=== PATIENT | female | born 1990 | race Caucasian/White ===

== ENCOUNTER 2016-06-02 14:00 | Inpatient (IN) | payer MEDICAID ==
[~2016-06-02] VITALS: Ht 165.1 cm; Wt 111.8 kg
[2016-06-02 14:14] VITALS: Ht 165.1 cm; Wt 111.8 kg
[2016-06-02] MEDS ORDERED: OXYTOCIN 30 UNITS/LR 500 ML IV PRN (14:30)
[2016-06-02] MEDS ORDERED: IBUPROFEN 600 MG TAB PO PRN (14:30)
[2016-06-02] MEDS ORDERED: MISOPROSTOL 200 MCG TAB PR PRN (14:30)
[2016-06-02] MEDS ORDERED: ACETAMINOPHEN/CODEINE #3 TAB PO PRN (14:30)
[2016-06-02] MEDS ORDERED: METHYLERGONOVINE 0.2 MG INJ IM PRN (14:30)
[2016-06-02] MEDS ORDERED: LIDOCAINE 1% (MPF) 30 ML INJ INJ PRN (14:30)
[2016-06-02] MEDS ORDERED: CARBOPROST 250 MCG INJ IM PRN (14:30)
[2016-06-02] MEDS ORDERED: OXYTOCIN 30 UNITS/LR 500 ML IV SCH ×2 (14:30)
[2016-06-02] MEDS: LACTATED RINGER'S 1,000 ML IV SCH ×2 (15:09→22:31)
[2016-06-02] MEDS ORDERED: DINOPROSTONE 10 MG VAG SUPP VAG ONE (15:30)
--- NOTE | 2016-06-02 15:44 | RADRPT ---
PROCEDURE: US OB. CLINICAL INDICATION: Macrosomia TECHNIQUE: Multiple sonographic images of the pelvis were obtained. Transabdominal imaging only w as performed. The images were reviewed on a PACS workstation. COMPARISON: No prior studies are available for comparison. FINDINGS: Single intrauterine gestation. Cephalic presentation. heart rate is 150 bpm. Measurements were made in order to determine age. The results are as follows: BPD = 9.90 cm HC = 34.54 cm AC = 37.69 cm FL = 8.05 cm Gestational age is 40 weeks 6 days by ultrasound criteria. Gestational age is 39 weeks 1 day and EDDA is 06/08/2016 by LMP. EFW = 4324 g +/- 649 g (greater than 97 %). The placenta is posterior fundal. There is no evidence for an abruption or placenta previa. IMPRESSION: 1. Single live intrauterine gestation of approximately 40 weeks 6 days by ultrasound criteria. RPTAT: EE .Norman Jung MD, MD Date Time Electronically viewed and signed by .Norman Jung MD, on 06/02/2016 15:44 .R/
[2016-06-02 15:48] LABS: BASOPHILS % 0.5 % (0.0-2.0); EOSINOPHILS % 0.6 % (0.0-7.0); HEMATOCRIT 34.6 % (37.0-47.0); HEMOGLOBIN 11.6 g/dl (12.0-16.0); LYMPHOCYTES # 1.8 10^3/ul (0.8-2.9); LYMPHOCYTES % 21.2 % (15.0-51.0); MEAN CORPUSCULAR HEMOGLOBIN 27.7 pg (29.0-33.0); MEAN CORPUSCULAR HGB CONC 33.4 g/dl (32.0-37.0); MEAN CORPUSCULAR VOLUME 82.9 fl (82.0-101.0); MEAN PLATELET VOLUME 8.9 fl (7.4-10.4); MONOCYTE # 0.6 10^3/ul (0.3-0.9); MONOCYTES % 7.1 % (0.0-11.0); NEUTROPHIL # 6.1 10^3/ul (1.6-7.5); NEUTROPHILS % 70.6 % (39.0-77.0); PLATELET COUNT 309 10^3/UL (140-440); RED BLOOD COUNT 4.17 10^6/ul (4.20-5.40); RED CELL DISTRIBUTION WIDTH 14.3 % (11.5-14.5); UNCORRECTED WBC 8.7 10^3/ul (4.8-10.8); WHITE BLOOD COUNT 8.7 10^3/ul (4.8-10.8)
[2016-06-02 15:56] VITALS: BP 115/67; PULSE 101; RESP 20
[2016-06-02 16:00] LABS: CONDITION 1; INR 0.95; PARTIAL THROMBOPLASTIN TIME 27.5 Sec (25.0-35.0); PROTIME 12.7 Sec (12.2-14.2)
[2016-06-02] MEDS ORDERED: LACTATED RINGER'S 1,000 ML IV PRN (16:00)
[2016-06-02 16:02] LABS: ALBUMIN 3.2 g/dl (3.3-4.9)
[2016-06-02 16:03] LABS: POTASSIUM 4.6 mmol/L (3.5-5.1)
[2016-06-02 16:05] LABS: ALBUMIN/GLOBULIN RATIO 0.88; BILIRUBIN,INDIRECT 0.4 mg/dl (0-1.1); BILIRUBIN,TOTAL 0.4 mg/dl (0.2-1.3); CREATININE 0.47 mg/dl (0.44-1.00); TOTAL PROTEIN 6.8 g/dl (6.1-8.1)
[2016-06-02 16:06] LABS: CALCIUM 8.5 mg/dl (8.4-10.2); URIC ACID 3.2 mg/dl (3.1-7.9)
--- NOTE | 2016-06-02 18:36 | HP ---
Date/Time of Note Date/Time of Note DATE: 06/02/16 TIME: 18:30 OB - History Hx of Present Free Text/Dictation admitted for elective induction of the labor Last Menstrual Period: September 02, 2015 Estimated Due Date: Jun 08, 2016 : 2 Para: 1 Care: Good Care Ultrasounds: Normal mid trimester US Obstetrical Complications: None Medical Complications: None Past Family/Social History * Past Medical, Surgical, Family and Obstetric Histories reviewed from chart. Blood Type: O+ Rubella: immune RPR/VDRL: Negative GBS Status: Negative HBsAG: Negative OB Admission Exam Vital Signs Vital Signs Vital Signs Date Time Temp Pulse Resp B/P Pulse Ox O2 Delivery O2 Flow Rate FiO2 06/02/16 15:56 97.7 101 20 115/67 Room Air Physical Exam HEENT: WNL Heart: Rhythm Normal Lungs: Clear, Equal Abdomen: WNL Extremities: Normal Reflexes: Normal Cervical Dilatation: 1cm Effacement: 0% Station: -3 Membranes: Intact Heart Rate: 130's Accelerations: Accelerations Present Decelerations: No Decelerations Varibility: Moderate Contractions on Admission: >10 Minutes Apart Last 72 hours Lab Results CBC & BMP 06/02/16 15:00 Liver Function Test 06/02/16 15:00 Alanine Aminotransferase (ALT/SGPT) 11 L Albumin 3.2 L Alkaline Phosphatase 183 H Aspartate Amino Transf (AST/SGOT) 29 Direct Bilirubin 0.00 Total Protein 6.8 OB Assessment/Plan Reason for admission: induction of labor Other Assessment: term gestation Induction Method: per Misoprostol Protocol (EFW reported >4300 gm; After consulatation with patient elected induction and vaginal delivery understanding possible and maternal complications with enlarged baby including but nor limmited to : shoulder dystocia, possible associated neurological damages and ventral neurolic injuries.) KIESHA PICKENS MD Jun 02, 2016 18:36
[2016-06-03] MEDS: LACTATED RINGER'S 1,000 ML IV SCH ×2 (05:48→13:45)
[2016-06-03] MEDS ORDERED: BUTORPHANOL 2 MG INJ IV PRN (06:30)
[2016-06-03 09:43] LABS: ADD UMIC NO; URINE BILIRUBIN (Dip) NEGATIVE (NEGATIVE); URINE BLOOD (Dip) NEGATIVE (NEGATIVE); URINE COLOR LT. YELLOW (YELLOW); URINE GLUCOSE (Dip) NEGATIVE (NEGATIVE); URINE KETONES (Dip) NEGATIVE (NEGATIVE); URINE LEUKOCYTE ESTERASE (Dip) NEGATIVE (NEGATIVE); URINE NITRITE (Dip) NEGATIVE (NEGATIVE); URINE TOTAL PROTEIN (Dip) NEGATIVE (NEGATIVE); URINE UROBILINOGEN (Dip) 0.2 E.U./dL (0.1-1.0)
[2016-06-03] MEDS ORDERED: FENTAnyl 50 MCG/ML VIAL ONE (17:22)
[2016-06-03] MEDS ORDERED: FENTAnyl 2MCG/ML-ROPIV 0.2% 100 ML ONE (17:23)
[2016-06-03] MEDS ORDERED: OXYTOCIN 30 UNITS/LR 500 ML IV SCH (21:30)
[2016-06-04] MEDS ORDERED: NALOXONE (0.4 MG/ML) INJ IV PRN (01:00)
[2016-06-04] MEDS: FENTAnyl 2MCG/ML-ROPIV 0.2% 100 ML BAG EPI SCH ×3 (01:06→13:27)
[2016-06-04] MEDS: LACTATED RINGER'S 1,000 ML IV SCH ×3 (01:08→14:57)
--- NOTE | 2016-06-04 18:03 | PN ---
Date/Time of Note Date/Time of Note late entry DATE: 06/03/16 OB Subjective Subjective Subjective NO complaints ( had epidural) OB Objective Objective Objective VSS P/E: NL Cx: 50% 2cm -3 OB Assessment/Plan Reason for admission: induction of labor Other Assessment: term gestation Induction Method: per Pitocin Protocol KEISHA PICKENS MD Jun 04, 2016 18:03
--- NOTE | 2016-06-04 18:08 | LDN ---
Date/Time of Note Date/Time of Note DATE: 06/04/16 TIME: 18:05 Delivery Summary of a viable over intact perineum Placenta Delivered: Spontaneously, Intact & Complete Meconium: none Perineum intact?: No Perineal laceration: 1 Perineal laceration repair: 1st degree perineal laceration was repaired with 3 0 Vicryl 2 X vestibular laceration were repaired with 4 0 Chromic Anesthesia type: Epidural Estimated blood loss: 300 Sponge & Needle done & correct: Yes All needle counts correct: Yes Any foreign bodies felt in the: No Problems: Delivery Information Sex Infant Sex: female Apgars 1 Minute: 9 5 Minute: 9 Suctioning Nose & mouth suctioned at alvin: Yes Delee suction performed: No Umbilical Cord Umbilical cord with: 3 Vessels Cord presentations: no nuchal cord Cord Blood was obtained: Yes Mother & Baby Disposition Disposition Mom & Baby to Maternity; Good: Yes (mother and baby were recovered in good condition ) Mom transferred to: Other (maternity ) Baby to NICU: No KEISHA PICKENS MD Jun 04, 2016 18:08
[2016-06-04 20:25] VITALS: BP 114/68; PULSE 77; RESP 19
[2016-06-04] MEDS ORDERED: MISOPROSTOL 200 MCG TAB PR PRN (21:00)
[2016-06-04] MEDS ORDERED: BENZOCAINE 20% 56 ML SPRAY TOP PRN (21:00)
[2016-06-04] MEDS ORDERED: METHYLERGONOVINE 0.2 MG INJ IM PRN (21:00)
[2016-06-04] MEDS ORDERED: DIBUCAINE 1% 30 GM OINT PR PRN (21:00)
[2016-06-04] MEDS ORDERED: WITCH HAZEL/GLYCERIN PAD PR PRN (21:00)
[2016-06-04] MEDS ORDERED: ZOLPIDEM 5 MG TAB PO PRN (21:00)
[2016-06-04] MEDS ORDERED: LANOLIN 7 GM TUBE TOP PRN (21:00)
[2016-06-04] MEDS ORDERED: OXYTOCIN 30 UNITS/LR 500 ML IV PRN (21:00)
[2016-06-04] MEDS ORDERED: ACETAMINOPHEN/CODEINE #3 TAB PO PRN (21:00)
[2016-06-04] MEDS ORDERED: CARBOPROST 250 MCG INJ IM PRN (21:00)
[2016-06-04] MEDS: SENNA/DOCUSATE NA (8.6MG/50MG) TAB PO SCH (21:22)
[2016-06-04] MEDS: MAGNESIUM HYDROXIDE 30ML CUP PO SCH (21:22)
[2016-06-04] MEDS: ACETAMINOPHEN/CODEINE #3 TAB PO PRN (21:22)
[2016-06-04] MEDS: CEPHALEXIN 500 MG CAP PO SCH (23:50)
[2016-06-04] MEDS: IBUPROFEN 600 MG TAB PO SCH (23:51)
[2016-06-05] VITALS: BP 110/69; PULSE 75; RESP 20
[2016-06-05] MEDS: LACTATED RINGER'S 1,000 ML IV* SCH ×4 (01:06→20:39)
[2016-06-05 04:30] VITALS: BP 102/66; PULSE 76; RESP 18
[2016-06-05] MEDS: IBUPROFEN 600 MG TAB PO SCH ×3 (05:30→18:08)
[2016-06-05] MEDS: CEPHALEXIN 500 MG CAP PO SCH ×3 (06:00→18:08)
[2016-06-05 07:57] LABS: ADD SCAN DIFF NO
[2016-06-05 08:00] VITALS: BP 108/67; PULSE 82; RESP 18
[2016-06-05 08:09] LABS: BASOPHILS % 0.3 % (0.0-2.0); EOSINOPHILS # 0.1 10^3/ul (0.0-0.5); EOSINOPHILS % 1.1 % (0.0-7.0); HEMATOCRIT 31.7 % (37.0-47.0); HEMOGLOBIN 10.7 g/dl (12.0-16.0); LYMPHOCYTES # 2.8 10^3/ul (0.8-2.9); LYMPHOCYTES % 23.4 % (15.0-51.0); MEAN CORPUSCULAR HEMOGLOBIN 27.9 pg (29.0-33.0); MEAN CORPUSCULAR HGB CONC 33.8 g/dl (32.0-37.0); MEAN CORPUSCULAR VOLUME 82.7 fl (82.0-101.0); MEAN PLATELET VOLUME 8.6 fl (7.4-10.4); MONOCYTE # 1.2 10^3/ul (0.3-0.9); MONOCYTES % 9.8 % (0.0-11.0); NEUTROPHIL # 7.9 10^3/ul (1.6-7.5); NEUTROPHILS % 65.4 % (39.0-77.0); PLATELET COUNT 245 10^3/UL (140-440); RED BLOOD COUNT 3.83 10^6/ul (4.20-5.40); RED CELL DISTRIBUTION WIDTH 13.9 % (11.5-14.5); WHITE BLOOD COUNT 12.1 10^3/ul (4.8-10.8)
[2016-06-05] MEDS: ACETAMINOPHEN/CODEINE #3 TAB PO PRN (09:38)
[2016-06-05] MEDS: MAGNESIUM HYDROXIDE 30ML CUP PO SCH ×2 (09:39→21:03)
[2016-06-05] MEDS: SENNA/DOCUSATE NA (8.6MG/50MG) TAB PO SCH ×2 (09:39→21:03)
--- NOTE | 2016-06-05 13:52 | DS ---
Date/Time of Note Date/Time of Note home next day DATE: 06/05/16 TIME: 13:48 Obstetrical Discharge Record Final Diagnosis Final Diagnosis: Term delivered Other Final Diagnosis S/P vaginal delivery Vaginal Delivery Obstetrical Delivery: Spontaneous, Laceration, Repaired Complications Augmentation: Yes Induction: Yes Condition on Discharge Physical Assessment Last Vitals: see nurses notes Voiding: Yes Bowel Movement: Yes Breast: Soft, non-tender, Filling Fundus: Firm Abdomen and Incision: soft BS Fundus: Firm Episiotomy: NA Perinum: healing Calf Tenderness: No Patient Condition: Good KEISHA PICKENS MD Jun 05, 2016 13:52
--- NOTE | 2016-06-05 15:09 | PD.PPDC ---
[facility] Discharge Instruction Provider Information Physician Information 26 y/o female had vaginal delivery Diagnosis Final Diagnosis: S/P vaginal delivery Condition Patient Condition: Good Diet Diet: Resume Regular Diet Activity/Restrictions Activity: Normal Activity May Shower Restrictions: Nothing in the Vagina Return to Work or School: Jul 19, 2016 Follow-up Follow-up with Physician: 4, Week/Weeks (in clinic) Return to clinic for OB Instructions: Breast Tenderness Depression KEISHA PICKENS MD Jun 05, 2016 15:09
[2016-06-05] MEDS ORDERED: IBUP-1542 PO (15:10)
[2016-06-05 16:11] VITALS: BP 109/56; PULSE 63; RESP 18
[2016-06-05 19:50] VITALS: BP 110/77; PULSE 88; RESP 18
[2016-06-06] MEDS: CEPHALEXIN 500 MG CAP PO SCH ×3 (00:28→12:07)
[2016-06-06] MEDS: IBUPROFEN 600 MG TAB PO SCH ×3 (00:28→12:07)
[2016-06-06 04:20] VITALS: BP 116/61; PULSE 81; RESP 18
[2016-06-06] MEDS: LACTATED RINGER'S 1,000 ML IV* SCH ×2 (04:39→12:08)
[2016-06-06 08:59] VITALS: BP 121/59; PULSE 84; RESP 18
[2016-06-06] MEDS ORDERED: VARICELLA VACCINE LIVE/PF 1,350 UNIT/0.5 ML ML SC* ONE (09:00)
[2016-06-06] MEDS ORDERED: DIPHTH/TET/ACEL PERTUSS (ADULT) 0.5 ML VIAL IM* ONE (09:00)
[2016-06-06] MEDS ORDERED: MEASLES,MUMPS,RUBELLA VACCINE INJ SC* ONE (09:00)
[2016-06-06] MEDS: MAGNESIUM HYDROXIDE 30ML CUP PO SCH (10:04)
[2016-06-06] MEDS: SENNA/DOCUSATE NA (8.6MG/50MG) TAB PO SCH (10:04)
== END 2016-06-06 15:23 | disposition home or self-care (01) | DRG 775 ==
LOC: L-D 14:05 → PP1 06-04 20:15
PROVIDERS: ADMIT Obstetrics & Gynecology; ATTEND Obstetrics & Gynecology
PROC: 10E0XZZ Delivery of Products of Conception, External Approach (ICD-10-PCS; principal; 2016-06-04)
PROC: 0HQ9XZZ Repair Perineum Skin, External Approach (ICD-10-PCS; 2016-06-04)
DX: O70.0 First degree perineal laceration during delivery (principal); Z68.41 Body mass index [BMI] 40.0-44.9, adult; O99.214 Obesity complicating childbirth; E66.01 Morbid (severe) obesity due to excess calories; Z3A.39 39 weeks gestation of pregnancy; Z37.0 Single live birth
CPT/HCPCS: 62319; 76815; 80053; 81003; 84560; 85025; 85610; 85730; 86592; 86850; 86900; 86901; 90715; 90716; J2590; J3010; J7120